=== PATIENT | male | born 1940 | race Caucasian/White ===

== ENCOUNTER 2018-11-07 12:33 | Observation (INO) | payer OTHER ==
[~2018-11-07] VITALS: Ht 172.7 cm; Wt 74.8 kg
[~2018-11-07 12:33] MED LIST: ATOR80 PO; Aspirin EC81 MG PO; CIPR500 PO; CLOP75 PO; DICL75ER PO; DOCU100 PO; HYDACE5 PO; IRON150C PO; LOSA50 PO; METDOP250 PO; METF500 PO; METO25ER PO; MULVITMIND PO; PRINIVIL10 MG PO; Percocet 5-3251 EACH PO; Zofran Odt4 MG SL
[2018-11-07 13:58] LABS: BASOPHILS ABSOLUTE AUTO 0.03 K/mm3 (0.00-0.23); BASOPHILS PERCENT AUTO 0 % (0-2); EOSINOPHILS ABSOLUTE AUTO 0.13 K/mm3 (0.00-0.68); EOSINOPHILS PERCENT AUTO 2 % (0-6); Hematocrit 38.9 % (37.0-53.0); IMMATURE GRAN ABSOLUTE AUTO 0.01 K/mm3 (0.00-0.10); IMMATURE GRAN PERCENT AUTO 0 % (0-1); LYMPHOCYTES ABSOLUTE AUTO 0.45 K/mm3 (0.84-5.20); LYMPHOCYTES PERCENT AUTO 6 % (21-46); MONOCYTES ABSOLUTE AUTO 0.21 K/mm3 (0.16-1.47); MONOCYTES PERCENT AUTO 3 % (4-13); Mean Corpuscular HGB 31.1 pg (26.0-34.0); Mean Corpuscular HGB Conc 33.4 g/dL (31.5-36.5); Mean Corpuscular Volume 93 fL (80-100); Mean Platelet Volume 10.7 fL (9.1-12.4); NEUTROPHILS ABSOLUTE AUTO 7.06 K/mm3 (1.96-9.15); NEUTROPHILS PERCENT AUTO 90 % (41-73); Platelet Count 192 K/mm3 (150-400); RDW Coefficient Variation 12.6 % (11.7-14.2); RDW Standard Deviation 43.3 fL (35.1-46.3); Red Blood Cell Count 4.18 M/mm3 (4.30-5.90); White Blood Cell Count 7.89 K/mm3 (4.00-11.30)
[2018-11-07 14:25] LABS: Alanine Aminotransfer (ALT/SGP 278 U/L (12-78); Albumin, Blood 3.8 g/dL (3.4-5.0); Albumin/Globulin Ratio 1.2 (0.8-1.8); Alk Phos 496 U/L (50-136); Anion Gap 8 mmol/L (6-16); Aspartate Aminotrans (AST/SGOT 322 U/L (12-37); Blood Urea Nitrogen 18 mg/dL (8-24); Bun/Creatinine Ratio 21.3 (12.0-20.0); CO2, Blood 27 mmol/L (21-32); Calcium, Blood 9.1 mg/dL (8.5-10.1); Chloride, Blood 104 mmol/L (98-108); Creatinine, Blood 0.84 mg/dL (0.60-1.20); Globulin, Blood 3.1 g/dL (2.2-4.0); Glomerular Filtration Rate >60 (60-); Glucose, Blood 136 mg/dL (70-99); Potassium, Blood 3.8 mmol/L (3.5-5.5); Sodium, Blood 139 mmol/L (136-145); Total Protein, Blood 6.9 g/dL (6.4-8.2); Troponin I <0.015 ng/mL (0.000-0.040)
[2018-11-07] MEDS ORDERED: ASCO500 PO (14:49)
[2018-11-07] MEDS ORDERED: DOCU100 PO (17:50)
--- NOTE | 2018-11-07 18:45 | NUR ---
ADMISSION AT 1702 PATIENT ARRIVED TO FLOOR FROM ED VIA WHEELCHAIR, ALERT AND ORIENTED X4. LUNGS CLEAR ON RA, TELE APPLIED, NSR PER EAR MUFF ASSEMBLER. PT STATES LAST BM WAS THIS MORNING 11/07. PT DENIES ANY PAIN OR NAUSEA AT THIS TIME. HE WANTS SOMETHING TO EAT/DRINK, FULL LIQUID TRAY ORDERED. NO SKIN ISSUES NOTED BESIDES MINOR SCABS. PT ORIENTED TO ROOM AND CALL BUTTON, HOSPITAL SOCKS APPLIED. IV FLUID STARTED INFUSING. DAUGHTER IN ROOM, REQUESTED ADVANCED DIRECTIVES MIRIAM, RN GAVE TO HER.
--- NOTE | 2018-11-08 04:24 | NUR ---
SHIFT SUMMARY PATIENT HAD NO ACUTE CHANGES OBSERVED. AXOX 3 AND INDEPENDENT TO THE BR. PIV REMAINS INTACT. LR INFUSING AT 125mL/HR. BOTTLE CARRIER REPORTS NSR 80 AND ONE SIX BEAT RUN OF V-TACH, FIRST TIME EVENT. DENIES PAIN, SOB, AND N/V. FULL LIQUID DIET. VSS/AFEBRILE. CALL LIGHT IN REACH. BED IN LOWEST POSITION. WILL CONTINUE TO MONITOR UNTIL DAY SHIFT NURSE ASSUMES CARE.
[2018-11-08 06:19] LABS: Alanine Aminotransfer (ALT/SGP 291 U/L (12-78); Albumin, Blood 3.1 g/dL (3.4-5.0); Albumin/Globulin Ratio 1.1 (0.8-1.8); Alk Phos 425 U/L (50-136); Anion Gap 7 mmol/L (6-16); Aspartate Aminotrans (AST/SGOT 265 U/L (12-37); Bilirubin, Total 4.3 mg/dL (0.1-1.0); Blood Urea Nitrogen 16 mg/dL (8-24); Bun/Creatinine Ratio 21.1 (12.0-20.0); CO2, Blood 25 mmol/L (21-32); Calcium, Blood 8.6 mg/dL (8.5-10.1); Chloride, Blood 105 mmol/L (98-108); Creatinine, Blood 0.76 mg/dL (0.60-1.20); Globulin, Blood 2.9 g/dL (2.2-4.0); Glomerular Filtration Rate >60 (60-); Glucose, Blood 145 mg/dL (70-99); Sodium, Blood 137 mmol/L (136-145)
--- NOTE | 2018-11-08 11:26 | NUR ---
DR ALFORD ROUNDED ON THIS PATIENT A LITTLE EARLIER THIS MORNING. HE PROVIDED ORDERS TO CHANGE PATIENTS DIET TO REG/ADA INSTEAD OF FULL LIQUIDS. CHANGED DIET PER ORDERS. DR ALFORD SAID INFORMED ME THAT IF PATIENT IS ABLE TO TOLERATE MEAL HE CAN BE DISCHARGED HOME.
--- NOTE | 2018-11-08 13:26 | NUR ---
DISCHARGE INSTRUCTIONS VERBALIZED TO PATIENT WELL A WRITTEN COPY GIVEN TO PATIENT FOR REFERENCE. ALL QUESTIONS ANSWERED. IV AND TELE REMOVED. PATIENT IN ROOM GETTING DRESSING AND GETTING READY TO GO HOME.
--- NOTE | 2018-11-08 13:40 | NUR ---
PATIENT DISCHARGED HOME AT THIS TIME. ZEINA STOVER RN WALKED PATIENT OUT.
== END 2018-11-08 13:36 | disposition home or self-care (01) ==
LOC: ER 12:33 → MEDS 12:34
PROVIDERS: Emergency Medicine; ADMIT Internal Medicine
DX: K85.90 Acute pancreatitis without necrosis or infection, unspecified (principal); I10 Essential (primary) hypertension; I25.10 Atherosclerotic heart disease of native coronary artery without angina pectoris; E11.9 Type 2 diabetes mellitus without complications; Z90.49 Acquired absence of other specified parts of digestive tract; Z95.1 Presence of aortocoronary bypass graft; Z79.899 Other long term (current) drug therapy; Z79.82 Long term (current) use of aspirin; Z79.84 Long term (current) use of oral hypoglycemic drugs
CPT/HCPCS: 36415; 71045; 74176; 80053; 83690; 83880; 84484; 85025; 93005; 93010; 96360; 96361; 96372; 99285-25; G0378; J1650; J7120

== ENCOUNTER → 2021-09-20 | Outpatient (CLI) | payer OTHER ==
[~2021-09-20] MED LIST changes: +ASCO500 PO
[2021-09-20 19:32] LABS: Albumin, Blood 4.1 g/dL (3.4-5.0); Albumin/Globulin Ratio 1.2 (0.8-1.8); Bun/Creatinine Ratio 21.1 (12.0-20.0); Calcium, Blood 9.2 mg/dL (8.5-10.1); Creatinine, Blood 0.99 mg/dL (0.60-1.20); Globulin, Blood 3.4 g/dL (2.2-4.0); Potassium, Blood 4.5 mmol/L (3.5-5.5); Total Protein, Blood 7.5 g/dL (6.4-8.2)
== END ==
LOC: LAB 11:58 → LAB SHORT 11:58
PROVIDERS: Family Medicine
DX: E11.9 Type 2 diabetes mellitus without complications (principal)
CPT/HCPCS: 80053; 83036

== ENCOUNTER → 2022-01-03 | Outpatient (CLI) | payer OTHER | LOC: LAB 07:45 → LAB SHORT 07:45 → PLD 07:45 | DX: L57.0 Actinic keratosis (principal) | CPT/HCPCS: 88305 ==

== ENCOUNTER → 2022-09-13 | Outpatient (CLI) | payer OTHER ==
[2022-09-13 20:16] LABS: Albumin/Globulin Ratio 1.2 (0.8-1.8); Bilirubin, Total 1.1 mg/dL (0.1-1.0); Bun/Creatinine Ratio 25.2 (12.0-20.0); Calcium, Blood 9.4 mg/dL (8.5-10.1); Creatinine, Blood 1.07 mg/dL (0.60-1.20); Globulin, Blood 3.4 g/dL (2.2-4.0); Potassium, Blood 4.2 mmol/L (3.5-5.5); Total Protein, Blood 7.4 g/dL (6.4-8.2)
== END ==
LOC: LAB SHORT 17:00 → LAB 17:00
PROVIDERS: Family Medicine
DX: E11.9 Type 2 diabetes mellitus without complications (principal); E78.2 Mixed hyperlipidemia
CPT/HCPCS: 80053; 83036

== ENCOUNTER 2024-08-29 10:02 | Day surgery (SDC) | payer OTHER ==
[~2024-08-29] VITALS: Ht 172.7 cm; Wt 76.5 kg
[~2024-08-29 10:02] MED LIST changes: +Balanced Salt Epinephrine Irrigation Solution 500 mL IR SCH; +Moxifloxacin HCL 0.5 MG/0.1 ML 0.4MLSYR RIGHTEYE SCH; +PHENYLEPHRINE\\TROPICAMIDE\\TETRACAINE OPHTHALMIC DILATING SOLN RIGHTEYE PRN; +Povidone-Iodine 450 DROP/30 ML Solution ONE; +Povidone-Iodine 450 DROP/30 ML Solution RIGHTEYE SCH; +Tetracaine HCl/Pf 0.5% Opth Soln 4 ml ONE; +Triamcinolone Inj Susp 40 MG / ML 1ML Vial INJ SCH; +Triamcinolone Inj Susp 40 MG / ML 1ML Vial ONE
[2024-08-29] MEDS ORDERED: NS 500 ML IV ONE ×2 (11:33→11:48)
[2024-08-29] MEDS ORDERED: Midazolam HCl 1MG / ML 2ML Vial ONE (11:42)
[2024-08-29] MEDS ORDERED: Tetracaine HCl 0.5% Opth Soln 15 ml RIGHTEYE ONE (12:04)
[2024-08-29 12:34] VITALS: BP 118/72
== END 2024-08-29 12:46 | disposition home or self-care (01) ==
LOC: ORSCSDS 10:02
PROVIDERS: Ophthalmology
PROC: 08RJ3JZ Replacement of Right Lens with Synthetic Substitute, Percutaneous Approach (ICD-10-PCS; principal; 2024-08-29 12:00)
DX: E11.36 Type 2 diabetes mellitus with diabetic cataract (principal); H25.11 Age-related nuclear cataract, right eye; Z97.0 Presence of artificial eye; H21.81 Floppy iris syndrome; I10 Essential (primary) hypertension; Z85.46 Personal history of malignant neoplasm of prostate; I25.2 Old myocardial infarction; E78.5 Hyperlipidemia, unspecified; H25.811 Combined forms of age-related cataract, right eye; I25.10 Atherosclerotic heart disease of native coronary artery without angina pectoris; Z79.82 Long term (current) use of aspirin; Z79.84 Long term (current) use of oral hypoglycemic drugs; Z79.899 Other long term (current) drug therapy
CPT/HCPCS: 82947; J2250; J3301; J7040; V2632